=== PATIENT | female | born 1990 | race Caucasian/White ===

== ENCOUNTER 2020-08-07 01:48 | Emergency (ER) | payer OTHER, SELFPAY ==
--- NOTE | ~2020-08-07 | XR_ITS ---
XR finger 2nd RT min 2V DATE: 08/07/2020 02:58 INDICATION: Fall. Distal second digit pain TECHNIQUE: 4 views COMPARISON: None FINDINGS: There is posterolateral dislocation of the distal interphalangeal joint of the second digit . No fracture is evident. IMPRESSION: Posterolateral dislocation of the distal interphalangeal joint Reviewed, dictated and finalized at location A.
[2020-08-07 01:51] VITALS: BP 153/94; PULSE 88; RESP 18; TEMP 36.6; O2SAT 100
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
[2020-08-07] MEDS: ONDANSETRON INJ 4 MG/2 ML VIAL IV PUSH (03:51)
[2020-08-07] MEDS: MORPHINE SULFATE (*CRX) 4 MG/ML INJ IV PUSH (03:52)
[2020-08-07] MEDS: ceFAZolin 2 GM/D5W 50 ML 2 GM/50 ML BAG IVPB (03:52)
[2020-08-07] MEDS: TETANUS,DIPHTHERIA,AC PERTUSSIS ADULT (0.5 ML) BOOSTRIX IM (03:54)
--- NOTE | 2020-08-07 05:09 | PC.NURSE ---
report called to Amie at [facility] ED.
[2020-08-07 05:25] VITALS: BP 124/78; PULSE 88; RESP 16; O2SAT 100
== END 2020-08-07 06:36 | disposition short-term general hospital (02) ==
PROVIDERS: Emergency Provider Emergency Medicine
DX: S63.290A Dislocation of distal interphalangeal joint of right index finger, initial encounter (principal); S61.210A Laceration without foreign body of right index finger without damage to nail, initial encounter; Z23 Encounter for immunization; V18.4XXA Pedal cycle driver injured in noncollision transport accident in traffic accident, initial encounter; Y93.55 Activity, bike riding
CPT/HCPCS: 73140; 90471; 90715; 96365; 96375; 99285; J0690; J2270; J2405